=== PATIENT | female | born 1960 | race Caucasian/White ===

== ENCOUNTER 2022-05-21 18:49 | Inpatient (IN) | payer MEDICAID ==
[~2022-05-21] VITALS: Ht 162.6 cm; Wt 89.8 kg
[2022-05-21 19:08] VITALS: BP 154/93
--- NOTE | 2022-05-21 21:21 | NUR ---
PT TAKEN TO BED 11
--- NOTE | 2022-05-21 21:29 | NUR ---
62YR OLD FEMALE BIB FAMILY C/O ESTEFANY LOWER EXT WEAKNESS. PT FALL ON MONDAY AT WORK LEFT ANKLE SWELLING EDEMA +2 NON PITTING. BRUISING TO FOOT UP TO MID L THIGH. 6/10 PAIN. PT IS A&OX4 WELSH SPEAKING ONLY. DAUGHTER AT BEDSIDE. DENIES CP OR SOB. 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 NKDA DM HTN
--- NOTE | 2022-05-21 22:27 | NUR ---
Octaviano fonseca in [facility] - 05/21/22 at 2227 by LEN Patient being evaluated by physician Allen at bedside.
--- NOTE | 2022-05-21 22:27 | NUR ---
Patient being evaluated by physician Anthony at bedside.
[2022-05-21] MEDS ORDERED: cefTRIAXone 1,000 MG in DEXT 5% MINI-BAG PLUS 50 ML IV ONE (22:30)
[2022-05-21] MEDS ORDERED: NACL 0.9% 1,000 ML IV SCH (22:30)
[2022-05-21] MEDS ORDERED: KETOROLAC 30 MG/ML VIAL IVP ONE (22:30)
[2022-05-21] MEDS ORDERED: cefTRIAXone 1,000 MG VIAL ONE (22:44)
[2022-05-21 22:47] LABS: BASOPHILS % (AUTO) 0.4 % (0.0-2.0); EOSINOPHILS # (AUTO) 0.1 K/uL (0-0.4); EOSINOPHILS % (AUTO) 0.6 % (0.0-4.0); HEMATOCRIT 37.9 % (36-48); LYMPHOCYTES # (AUTO) 2.3 K/uL (2.5-16.5); LYMPHOCYTES % (AUTO) 18.8 % (20.5-51.1); MEAN CORPUSCULAR HEMOGLOBIN 28 pg (27-31); MEAN CORPUSCULAR HGB CONC 32 g/dL (33-37); MONOCYTES # (AUTO) 0.8 K/uL (0.8-1.0); MONOCYTES % (AUTO) 6.3 % (1.7-9.3); NEUTROPHILS # (AUTO) 9.1 K/uL (1.8-7.7); NEUTROPHILS % (AUTO) 73.9 % (42.2-75.2); PLATELET COUNT (AUTO) 217 K/uL (140-450); RED BLOOD CELL COUNT(AUTO) 4.35 MIL/uL (4.20-5.40); RED CELL DISTRIBUTION WIDTH 15.8 % (11.6-13.7); WHITE BLOOD COUNT (AUTO) 12.3 K/uL (4.8-10.8)
--- NOTE | 2022-05-21 22:47 | NUR ---
20G IV CATH PLACED L AC COVID SWAB AND URINE COLLECTED AND SENT TO LAB
[2022-05-21 22:49] LABS: APPEARANCE,URINE CLEAR (CLEAR); BILIRUBIN,URINE NEGATIVE (NEGATIVE); BLOOD, URINE NEGATIVE (NEGATIVE); COLOR,URINE YELLOW (YELLOW); LEUKOCYTE ESTERASE ,URINE TRACE (NEGATIVE); NITRITE, URINE NEGATIVE (NEGATIVE); PH,URINE 5.5 (5.0-9.0); UGLUCOSE NEGATIVE (NEGATIVE)
--- NOTE | 2022-05-21 22:54 | NUR ---
FLU SWAB COLLECTED AND SENT TO LAB
[2022-05-21] MEDS ORDERED: METF-1139 PO (22:57)
[2022-05-21] MEDS ORDERED: AMLO10TA PO (22:58)
[2022-05-21] MEDS ORDERED: ATOR20TA PO (22:58)
[2022-05-21] MEDS ORDERED: SITA100T8 PO (22:59)
[2022-05-21] MEDS ORDERED: LISI-487 PO (22:59)
[2022-05-21] MEDS ORDERED: METO25TA PO (23:00)
[2022-05-21] MEDS ORDERED: CHOL100013 PO (23:02)
[2022-05-21 23:05] LABS: RBC,URINE 0-5 /HPF (0-5); WBC,URINE 16-25 (MOD) /HPF (0-5)
[2022-05-21 23:10] LABS: ALBUMIN 2.9 g/dL (3.4-5.0); ANION GAP 9.2 (8-16); CREATININE 0.7 mg/dL (0.6-1.3); POTASSIUM 4.2 mmol/L (3.5-5.1); TOTAL BILIRUBIN 0.3 mg/dL (0.0-1.0)
--- NOTE | 2022-05-21 23:41 | NUR ---
got the report from brandon Waldrop, patient is alert and oriented, scottish speaker and daughter in law at the bedside. meds are being infused.
[2022-05-22 01:20] VITALS: BP 142/66
--- NOTE | 2022-05-22 01:32 | NUR ---
GET THE REPORT FROM ER NURSE, PATIENT IS LYING ON BED, PATIENT IS ALERT ORIENTED X4, PATIENT IS TRINIDADIAN SPEAKING, VITAL SIGN IS WITHIN THE NORMAL RANGE, ALL FALL PRECAUTION MEASURE ARE IN PLACE, CALL LIGHT IS WITHIN THE REACH, WILL CONTINUE TO MONITOR PATIENT.
--- NOTE | 2022-05-22 01:41 | NUR ---
Patient will be admitted to care of cipriano Waldrop. Admited to Med surge unit . Will go to room 104 B. Belongings list completed. Report to Cipriano. Pt is unsteady. All belongings sent with the patient.
[2022-05-22 04:00] VITALS: BP 147/68
--- NOTE | 2022-05-22 04:56 | NUR ---
CHANGE AND REPOSITION PATIENT WITH HELP OF GUARD RANGE, PATIENT IS LYING ON BED, NO ANY COMPLAIN OF PAIN OR SHORTNESS OF BREATH AT THIS TIME,ALL SCHEDULE MEDICATION IS GIVEN PER DOCTOR ORDER, VITAL SIGN IS WITHIN THE NORMAL RANGE, CALL LIGHT IS WITHIN THE REACH,WILL CONTINUE TO MONITOR PATIENT.
[2022-05-22 07:14] LABS: BASOPHILS % (AUTO) 0.4 % (0.0-2.0); EOSINOPHILS # (AUTO) 0.1 K/uL (0-0.4); EOSINOPHILS % (AUTO) 0.7 % (0.0-4.0); HEMATOCRIT 37.9 % (36-48); LYMPHOCYTES # (AUTO) 2.9 K/uL (2.5-16.5); LYMPHOCYTES % (AUTO) 25.7 % (20.5-51.1); MEAN CORPUSCULAR HEMOGLOBIN 28 pg (27-31); MEAN CORPUSCULAR HGB CONC 32 g/dL (33-37); MONOCYTES # (AUTO) 0.7 K/uL (0.8-1.0); MONOCYTES % (AUTO) 5.8 % (1.7-9.3); NEUTROPHILS # (AUTO) 7.6 K/uL (1.8-7.7); NEUTROPHILS % (AUTO) 67.4 % (42.2-75.2); PLATELET COUNT (AUTO) 214 K/uL (140-450); RED BLOOD CELL COUNT(AUTO) 4.36 MIL/uL (4.20-5.40); RED CELL DISTRIBUTION WIDTH 15.9 % (11.6-13.7); WHITE BLOOD COUNT (AUTO) 11.3 K/uL (4.8-10.8)
--- NOTE | 2022-05-22 07:14 | NUR ---
GAVE THE REPORT TO MORNING NURSE BONNY FOR CONTINUOS OF CARE , PATIENT IS STABLE.
[2022-05-22] MEDS ORDERED: ONDANSETRON 4 MG/2 ML VIAL IVP PRN (07:20)
[2022-05-22] MEDS ORDERED: ACETAMINOPHEN 325 MG TAB PO PRN (07:20)
[2022-05-22] MEDS ORDERED: DOCUSATE SODIUM 100 MG GELCAP PO PRN (07:20)
[2022-05-22] MEDS ORDERED: ZOLPIDEM 10 MG TAB PO PRN (07:20)
[2022-05-22] MEDS ORDERED: POTASSIUM CHLORIDE 10 MEQ TABER PO PRN (07:20)
[2022-05-22] MEDS ORDERED: MAG SULF 2000 MG/WATER PREMIX 50 ML IV PRN (07:20)
[2022-05-22] MEDS ORDERED: LORazepam 2 MG/ML VIAL IVP PRN (07:20)
[2022-05-22 07:24] LABS: ANION GAP 6.1 (8-16); CARBON DIOXIDE 29.9 mmol/L (21-32); CREATININE 0.6 mg/dL (0.6-1.3)
--- NOTE | 2022-05-22 07:26 | NUR ---
GOT REPORT FROM THE NIGHT NURSE, PT IS SLEEPING , NO SOB,[id number]
[2022-05-22 08:00] VITALS: BP 153/78
--- NOTE | 2022-05-22 09:00 | NUR ---
PT BILATERAL LEG SWOLLEN RED. THE LEFT LEG IS WORSE. ALSO THE PAIN IS SEVER IN THE LEFT UPPER AND LOWER LEG . CAROTID US IS DONE TODAY, PT UP IN W\C. [id number]
--- NOTE | 2022-05-22 09:17 | NUR ---
PATIENT HAS BEEN SCREENED AND CATEGORIZED LOW NUTRITION RISK. PATIENT WILL BE SEEN WITHIN 7 DAYS OF ADMISSION. 05/22/22-05/29/[address]
[2022-05-22] MEDS: METOPROLOL 25 MG TAB PO SCH ×2 (09:22→21:05)
[2022-05-22] MEDS: amLODIPine 5 MG TAB PO SCH (09:23)
[2022-05-22 12:00] VITALS: BP 153/78
[2022-05-22] MEDS ORDERED: INSULIN LISPRO SLIDING SCALE 100 UNITS/ML VIAL SUBQ PRN (12:45)
[2022-05-22 16:00] VITALS: BP 153/74
[2022-05-22] MEDS: MORPHINE SULFATE 2 MG/ML SYR IVP PRN (16:23)
[2022-05-22] MEDS: BLOOD GLUCOSE MONITORING 1 DEV DEV FS SCH ×2 (16:51→21:07)
--- NOTE | 2022-05-22 17:10 | NUR ---
RECEIVED REPORT FROM DAY NURSE. PATIENT WAS AMBULATING FROM THE RESTROOM, USING WALKER, WITH SLOW STEADY GAIT, FAMILY AT BEDSIDE. PATIENT IS ALERT AND ORIENTED. DENIES PAIN/ DISCOMFORT. CALL LIGHT WITHIN REACH.
--- NOTE | 2022-05-22 17:34 | NUR ---
PT HAS VISITOR ON THE BEDSIDE MEDICATED ORDERED FOR THE LEFT LEG PAIN.[id number]
--- NOTE | 2022-05-22 18:42 | NUR ---
ORTHOSTATIC BP IS SITTING 124\56 AND STANDING 134 62 [id number]
[2022-05-22 20:00] VITALS: BP 148/66
[2022-05-22] MEDS ORDERED: ATORVASTATIN 20 MG TAB PO SCH (21:00)
--- NOTE | 2022-05-22 21:10 | NUR ---
DUE MEDICATIONS GIVEN ORDERED, VITALS T 97.2, HR 61 BPM, BP 148/66, RESP 18, O2 97% ON ROOM AIR. SAFETY PRECAUTIONS MAINTAINED, CALL LIGHT WITHIN REACH, INFORMED PATIENT TO USE CALL LIGHT WHEN IN NEED OF ASSISTANCE, VERBALIZED UNDERSTANDING.
--- NOTE | 2022-05-23 00:10 | NUR ---
DUE MEDICATIONS GIVEN ORDERED. WILL CONTINUE TO MONITOR.
[2022-05-23] MEDS: MORPHINE SULFATE 2 MG/ML SYR IVP PRN (00:43)
--- NOTE | 2022-05-23 03:49 | NUR ---
PATIENT IS ASLEEP, LYING COMFORTABLY, NO SIGNS OF DISTRESS NOTED, NO SIGNS OF PAIN NOTED. CALL LIGHT IS WITHIN REACH. WILL CONTINUE TO MONITOR THE PATIENT.
[2022-05-23 04:00] VITALS: BP 140/72
--- NOTE | 2022-05-23 05:30 | NUR ---
PATIENT IS AWAKE, BREATHING EVEN AND NON LABORED ON ROOM AIR, DENIES PAIN. CALL LIGHT IS WITHIN REACH.
[2022-05-23] MEDS: BLOOD GLUCOSE MONITORING 1 DEV DEV FS SCH ×2 (06:34→11:51)
[2022-05-23 06:52] LABS: BASOPHILS % (AUTO) 0.3 % (0.0-2.0); EOSINOPHILS # (AUTO) 0.1 K/uL (0-0.4); EOSINOPHILS % (AUTO) 0.8 % (0.0-4.0); HEMATOCRIT 38.8 % (36-48); HEMOGLOBIN 12.4 g/dL (12.0-16.0); LYMPHOCYTES # (AUTO) 2.7 K/uL (2.5-16.5); LYMPHOCYTES % (AUTO) 27.7 % (20.5-51.1); MEAN CORPUSCULAR HEMOGLOBIN 28 pg (27-31); MEAN CORPUSCULAR HGB CONC 32 g/dL (33-37); MEAN CORPUSCULAR VOLUME 87.2 fL (80-94); MONOCYTES # (AUTO) 0.6 K/uL (0.8-1.0); NEUTROPHILS # (AUTO) 6.2 K/uL (1.8-7.7); NEUTROPHILS % (AUTO) 65.2 % (42.2-75.2); PLATELET COUNT (AUTO) 205 K/uL (140-450); RED BLOOD CELL COUNT(AUTO) 4.44 MIL/uL (4.20-5.40); RED CELL DISTRIBUTION WIDTH 15.8 % (11.6-13.7); WHITE BLOOD COUNT (AUTO) 9.6 K/uL (4.8-10.8)
--- NOTE | 2022-05-23 07:08 | NUR ---
ENDORSED PATIENT TO DAY NURSE FOR CONTINUITY OF CARE. PATIENT IS STABLE.
[2022-05-23 07:18] LABS: ANION GAP 5.9 (8-16); CARBON DIOXIDE 35.4 mmol/L (21-32); CREATININE 0.6 mg/dL (0.6-1.3); POTASSIUM 4.3 mmol/L (3.5-5.1)
--- NOTE | 2022-05-23 07:23 | NUR ---
GOT REPORT FROM THE NIGHT NURSE, PT SLEEPING NO SOB,[id number]
[2022-05-23 08:00] VITALS: BP 149/94
[2022-05-23] MEDS: METOPROLOL 25 MG TAB PO SCH (09:22)
[2022-05-23] MEDS: amLODIPine 5 MG TAB PO SCH (09:22)
[2022-05-23 12:00] VITALS: BP 149/94
[2022-05-23] MEDS ORDERED: DICL100G31 TP (12:48)
[2022-05-23 12:49] VITALS: BP 149/94
--- NOTE | 2022-05-23 15:15 | NUR ---
DC [age] YRS OLD FEMALE PATIENT WAS ADMITTED FROM HOME WITH A DX OF UTI. PATIENT HAS A HX OF DM, HTN AND HLD. CXT CAROTID US AND HEAD CT NEGATIVE. RAPDI COVID TEST NEGATIVE. ADMINISTERED IVF, IV ABX ROCEPHIN AND CONTINUED HOME MEDS. DC PLAN TO GO HOME WITH HOME [facility] FOR PHYSICAL THERAPY. FAXED THE ORDER TO [facility] [phone]. CM TO FOLLOW
--- NOTE | 2022-05-23 15:40 | NUR ---
PT DISCHARGED AND DISCHARGE INSTRUCTION IS GIVEN.IV AND ID BAND REMOVED. PT ESCORTED OUT TO THE CAR BY W\C WITHOUT ANY DISCOMFORT.[id number]
--- NOTE | 2022-05-24 07:52 | NUR ---
LATE ENTRY-0 IV CEFTRIAXONE DISCONTINUED AT 0141.
== END 2022-05-23 15:35 | disposition home health service (06) | DRG 204 ==
LOC: MED 18:49 → MMU 05-22 00:09 → MTU 05-22 00:57
PROVIDERS: ADMIT Family Medicine; ATTEND Family Medicine
DX: I95.1 Orthostatic hypotension (principal); E44.0 Moderate protein-calorie malnutrition; N39.0 Urinary tract infection, site not specified; E11.9 Type 2 diabetes mellitus without complications; Z20.822 Contact with and (suspected) exposure to COVID-19; I10 Essential (primary) hypertension; E78.5 Hyperlipidemia, unspecified; Z68.34 Body mass index [BMI] 34.0-34.9, adult
CPT/HCPCS: 36415; 70450; 71045; 73562; 80048; 80053; 81001; 82948; 83605; 83735; 83880; 84484; 85025; 87040; 87081; 87086; 93005; 93880; 96365; 96375; 97110; 97116; 97163-GP; 97530; 99285; J0696; J1885; J2270; J7060; Q0092

== ENCOUNTER 2024-02-17 18:49 | Inpatient (IN) | payer MEDICAID ==
[~2024-02-17] VITALS: Ht 157.5 cm; Wt 102.3 kg
[~2024-02-17 18:49] MED LIST: AMLO10TA PO; ATOR20TA PO; CHOL100013 PO; DICL100G31 TP; LISI-953 PO; METF-1139 PO; METO25TA PO; SITA100T8 PO
[2024-02-17 18:50] VITALS: BP 102/54; PULSE 101; RESP 18; TEMP 98; O2SAT 97
[2024-02-17 19:20] VITALS: O2SAT 99
[2024-02-17] MEDS: NACL 0.9% 1,000 ML IV SCH (19:50)
[2024-02-17 20:13] LABS: BASOPHILS # (AUTO) 0.1 K/uL (0.00-0.22); EOSINOPHILS # (AUTO) 0.9 K/uL (0-0.4); EOSINOPHILS % (AUTO) 9.6 % (0.0-4.0); HEMATOCRIT 32.1 % (36-48); HEMOGLOBIN 10.3 g/dL (12.0-16.0); LYMPHOCYTES % (AUTO) 34.2 % (20.5-51.1); MEAN CORPUSCULAR HEMOGLOBIN 28 pg (27-31); MEAN CORPUSCULAR HGB CONC 32 g/dL (33-37); MEAN CORPUSCULAR VOLUME 85.6 fL (80-94); MONOCYTES # (AUTO) 0.7 K/uL (0.8-1.0); MONOCYTES % (AUTO) 8.5 % (1.7-9.3); NEUTROPHILS # (AUTO) 4.1 K/uL (1.8-7.7); NEUTROPHILS % (AUTO) 46.7 % (42.2-75.2); PLATELET COUNT (AUTO) 466 K/uL (140-450); RED BLOOD CELL COUNT(AUTO) 3.75 MIL/uL (4.20-5.40); RED CELL DISTRIBUTION WIDTH 18.7 % (11.6-13.7); WHITE BLOOD COUNT (AUTO) 8.8 K/uL (4.8-10.8)
[2024-02-17 20:31] LABS: ANION GAP 12.6 (8-16); CARBON DIOXIDE 25.3 mmol/L (21-32); CREATININE 0.7 mg/dL (0.6-1.3); POTASSIUM 3.9 mmol/L (3.5-5.1)
[2024-02-17 20:46] LABS: INR 1.03 (0.8-1.2); PARTIAL THROMBOPLASTIN TIME 25.2 secs (22-35.6); PROTHROMBIN TIME 10.8 secs (10.8-13.4)
[2024-02-17 20:54] LABS: LACTIC ACID 1.4 mmol/L (0.4-2.0)
[2024-02-17 21:13] LABS: ALANINE AMINOTRANSFERASE 33 U/L (12-78); ALBUMIN 1.8 g/dL (3.4-5.0); ALKALINE PHOSPHATASE 111 U/L (50-136); ASPARTATE AMINOTRANSFERASE 29 U/L (15-37); BILIRUBIN,DIRECT 0.2 mg/dL (0.0-0.3); TOTAL BILIRUBIN 0.6 mg/dL (0.0-1.0); TOTAL PROTEIN, SERUM 6.1 g/dL (6.4-8.2)
[2024-02-17 21:44] LABS: APPEARANCE,URINE CLEAR (CLEAR); BILIRUBIN,URINE 1+ (NEGATIVE); BLOOD, URINE NEGATIVE (NEGATIVE); COLOR,URINE YELLOW (YELLOW); LEUKOCYTE ESTERASE ,URINE TRACE (NEGATIVE); NITRITE, URINE NEGATIVE (NEGATIVE); PROTEIN,URINE NEGATIVE (NEGATIVE); UGLUCOSE NEGATIVE (NEGATIVE); UROBILINOGEN,URINE 0.2 EU/dL (0.2 - 1)
[2024-02-17 22:04] LABS: ICTOTEST NEGATIVE (NEGATIVE)
[2024-02-17 22:05] LABS: BACTERIA,URINE 1+ /HPF (None Seen); RBC,URINE 0-5 /HPF (0-5); WBC,URINE 0-5 /HPF (0-5); YEAST,URINE Few /HPF (None Seen)
[2024-02-17] MEDS ORDERED: cefTRIAXone 2,000 MG VIAL ONE (23:07)
[2024-02-17] MEDS: cefTRIAXone 2,000 MG in DEXTROSE 5% 100 ML IV ONE (23:14)
[2024-02-17 23:53] VITALS: O2SAT 99
[2024-02-18] MEDS: DEXT 5% /NACL 0.9% 1,000 ML IV SCH (00:20)
[2024-02-18] MEDS ORDERED: MECO10005 PO (00:59)
[2024-02-18] MEDS ORDERED: METF-350 PO (00:59)
[2024-02-18] MEDS ORDERED: CALC-575 PO (00:59)
[2024-02-18] MEDS ORDERED: ATOR40TA PO (00:59)
[2024-02-18] MEDS ORDERED: LISI40TA8 PO (00:59)
[2024-02-18] MEDS ORDERED: [UNRECOGNIZED DRUG - CODE] PO (00:59)
[2024-02-18 01:20] VITALS: PULSE 104; RESP 18; O2SAT 100
[2024-02-18 04:00] VITALS: BP 121/65; PULSE 88; RESP 18; TEMP 98.5; O2SAT 100
[2024-02-18 08:00] VITALS: BP 115/67; PULSE 102; RESP 18; TEMP 97.9; O2SAT 97
[2024-02-18] MEDS: ENOXAPARIN 40 MG/0.4 ML SYR SUBQ SCH (09:29)
[2024-02-18] MEDS: CEFEPIME 2,000 MG in DEXTROSE 5% 100 ML IV SCH (10:18)
[2024-02-18] MEDS ORDERED: NACL 0.9% 500 ML IV SCH (11:05)
[2024-02-18] MEDS ORDERED: DEXTROSE 50% 50 ML SYR IVP PRN (11:10)
[2024-02-18 11:38] LABS: BASOPHILS # (AUTO) 0.1 K/uL (0.00-0.22); BASOPHILS % (AUTO) 0.9 % (0.0-2.0); EOSINOPHILS # (AUTO) 0.7 K/uL (0-0.4); EOSINOPHILS % (AUTO) 9.4 % (0.0-4.0); HEMATOCRIT 30.4 % (36-48); HEMOGLOBIN 9.8 g/dL (12.0-16.0); LYMPHOCYTES # (AUTO) 2.3 K/uL (2.5-16.5); LYMPHOCYTES % (AUTO) 29.2 % (20.5-51.1); MEAN CORPUSCULAR HEMOGLOBIN 28 pg (27-31); MEAN CORPUSCULAR HGB CONC 32 g/dL (33-37); MONOCYTES # (AUTO) 0.6 K/uL (0.8-1.0); MONOCYTES % (AUTO) 8.2 % (1.7-9.3); NEUTROPHILS # (AUTO) 4.1 K/uL (1.8-7.7); NEUTROPHILS % (AUTO) 52.3 % (42.2-75.2); PLATELET COUNT (AUTO) 483 K/uL (140-450); RED BLOOD CELL COUNT(AUTO) 3.58 MIL/uL (4.20-5.40); RED CELL DISTRIBUTION WIDTH 18.2 % (11.6-13.7); WHITE BLOOD COUNT (AUTO) 7.7 K/uL (4.8-10.8)
[2024-02-18 11:53] LABS: ANION GAP 13.4 (8-16); CALCIUM 10.5 mg/dL (8.5-10.1); CARBON DIOXIDE 23.3 mmol/L (21-32); CREATININE 0.7 mg/dL (0.6-1.3); POTASSIUM 3.7 mmol/L (3.5-5.1)
[2024-02-18] MEDS: BLOOD GLUCOSE MONITORING 1 DEV DEV FS SCH (12:21)
[2024-02-18] MEDS: INSULIN LISPRO SLIDING SCALE 100 UNITS/ML VIAL SUBQ PRN (12:23)
[2024-02-18 16:00] VITALS: BP 132/84; PULSE 111; RESP 18; TEMP 97.5; O2SAT 94
[2024-02-18] MEDS: NACL 0.9% 1,000 ML IV SCH (16:14)
[2024-02-18 20:00] VITALS: BP 137/65; PULSE 107; RESP 18; TEMP 98.8; O2SAT 100
[2024-02-18] MEDS: ATORVASTATIN 20 MG TAB PO SCH (21:52)
[2024-02-18] MEDS: METOPROLOL 25 MG TAB PO SCH (21:53)
[2024-02-18] MEDS: ACETAMINOPHEN 325 MG TAB PO PRN (21:55)
[2024-02-19] VITALS: BP 143/69; PULSE 89; RESP 18; TEMP 98.1; O2SAT 98
[2024-02-19 04:00] VITALS: BP 137/65; PULSE 89; RESP 18; TEMP 98.8; O2SAT 98
[2024-02-19 05:44] LABS: BASOPHILS # (AUTO) 0.1 K/uL (0.00-0.22); BASOPHILS % (AUTO) 0.7 % (0.0-2.0); EOSINOPHILS # (AUTO) 0.8 K/uL (0-0.4); EOSINOPHILS % (AUTO) 10.1 % (0.0-4.0); HEMOGLOBIN 9.6 g/dL (12.0-16.0); LYMPHOCYTES # (AUTO) 1.9 K/uL (2.5-16.5); MEAN CORPUSCULAR HEMOGLOBIN 28 pg (27-31); MEAN CORPUSCULAR HGB CONC 33 g/dL (33-37); MEAN CORPUSCULAR VOLUME 85.2 fL (80-94); MONOCYTES # (AUTO) 0.6 K/uL (0.8-1.0); NEUTROPHILS # (AUTO) 4.3 K/uL (1.8-7.7); NEUTROPHILS % (AUTO) 56.2 % (42.2-75.2); PLATELET COUNT (AUTO) 462 K/uL (140-450); RED CELL DISTRIBUTION WIDTH 18.9 % (11.6-13.7); WHITE BLOOD COUNT (AUTO) 7.7 K/uL (4.8-10.8)
[2024-02-19 05:56] LABS: ALBUMIN 1.8 g/dL (3.4-5.0); ANION GAP 11.1 (8-16); CALCIUM 10.5 mg/dL (8.5-10.1); CARBON DIOXIDE 25.4 mmol/L (21-32); CREATININE 0.7 mg/dL (0.6-1.3); MAGNESIUM 1.1 mg/dL (1.8-2.4); PHOSPHORUS 4.2 mg/dL (2.5-4.9); POTASSIUM 3.5 mmol/L (3.5-5.1); TOTAL BILIRUBIN 0.6 mg/dL (0.0-1.0); TOTAL PROTEIN, SERUM 5.8 g/dL (6.4-8.2)
[2024-02-19 08:00] VITALS: BP 102/53; PULSE 105; RESP 18; TEMP 98.5; O2SAT 100
[2024-02-19] MEDS: amLODIPine 5 MG TAB PO SCH (08:42)
[2024-02-19 16:00] VITALS: BP 107/64; PULSE 91; RESP 18; TEMP 98.4; O2SAT 91
[2024-02-19] MEDS ORDERED: MAG SULF 2000 MG/WATER PREMIX 50 ML IV ONE (16:25)
[2024-02-19] MEDS: MAG SULF 2000 MG/WATER PREMIX 100 ML IV ONE (17:52)
[2024-02-19 20:00] VITALS: BP 128/53; PULSE 100; PULSE 68; RESP 18; TEMP 99.2; O2SAT 100
[2024-02-19] MEDS: MAG SULF 2000 MG/WATER PREMIX 50 ML IV ONE (23:44)
[2024-02-20 03:59] VITALS: BP 100/53; PULSE 101; RESP 19; TEMP 98.1; O2SAT 97
[2024-02-20 05:39] LABS: BASOPHILS # (AUTO) 0.1 K/uL (0.00-0.22); BASOPHILS % (AUTO) 0.8 % (0.0-2.0); EOSINOPHILS # (AUTO) 0.8 K/uL (0-0.4); EOSINOPHILS % (AUTO) 10.5 % (0.0-4.0); HEMATOCRIT 27.9 % (36-48); HEMOGLOBIN 9.2 g/dL (12.0-16.0); LYMPHOCYTES # (AUTO) 1.7 K/uL (2.5-16.5); LYMPHOCYTES % (AUTO) 22.4 % (20.5-51.1); MEAN CORPUSCULAR HEMOGLOBIN 28 pg (27-31); MEAN CORPUSCULAR HGB CONC 33 g/dL (33-37); MEAN CORPUSCULAR VOLUME 85.8 fL (80-94); MONOCYTES # (AUTO) 0.7 K/uL (0.8-1.0); MONOCYTES % (AUTO) 9.2 % (1.7-9.3); NEUTROPHILS # (AUTO) 4.4 K/uL (1.8-7.7); NEUTROPHILS % (AUTO) 57.1 % (42.2-75.2); PLATELET COUNT (AUTO) 485 K/uL (140-450); RED BLOOD CELL COUNT(AUTO) 3.26 MIL/uL (4.20-5.40); RED CELL DISTRIBUTION WIDTH 18.5 % (11.6-13.7); WHITE BLOOD COUNT (AUTO) 7.7 K/uL (4.8-10.8)
[2024-02-20 06:20] LABS: ANION GAP 13.1 (8-16); CARBON DIOXIDE 24.3 mmol/L (21-32); CREATININE 0.6 mg/dL (0.6-1.3); POTASSIUM 3.4 mmol/L (3.5-5.1)
[2024-02-20 08:00] VITALS: BP 110/36; PULSE 106; RESP 18; TEMP 97.7; O2SAT 96
[2024-02-20 16:00] VITALS: BP 136/71; PULSE 101; RESP 18; TEMP 98.3; O2SAT 99
[2024-02-20 20:00] VITALS: BP 125/54; PULSE 99; RESP 18; TEMP 98; O2SAT 98
[2024-02-20] MEDS: HYDROcodone/APAP 5/325 MG 1 TAB TAB PO PRN (22:02)
[2024-02-20 23:54] VITALS: BP 131/59; PULSE 86; RESP 19; TEMP 98.1; O2SAT 97
[2024-02-21 04:00] VITALS: BP 137/70; PULSE 86; RESP 17; TEMP 97.2; O2SAT 99
[2024-02-21 08:00] VITALS: BP 129/68; PULSE 87; PULSE 99; RESP 18; TEMP 97.1; O2SAT 98
[2024-02-21 11:07] LABS: BASOPHILS % (AUTO) 0.7 % (0.0-2.0); EOSINOPHILS # (AUTO) 0.7 K/uL (0-0.4); EOSINOPHILS % (AUTO) 9.6 % (0.0-4.0); HEMATOCRIT 28.7 % (36-48); HEMOGLOBIN 9.4 g/dL (12.0-16.0); LYMPHOCYTES % (AUTO) 25.9 % (20.5-51.1); MEAN CORPUSCULAR HEMOGLOBIN 28 pg (27-31); MEAN CORPUSCULAR HGB CONC 33 g/dL (33-37); MEAN CORPUSCULAR VOLUME 85.1 fL (80-94); MONOCYTES # (AUTO) 0.7 K/uL (0.8-1.0); MONOCYTES % (AUTO) 8.9 % (1.7-9.3); NEUTROPHILS # (AUTO) 4.2 K/uL (1.8-7.7); NEUTROPHILS % (AUTO) 54.9 % (42.2-75.2); PLATELET COUNT (AUTO) 486 K/uL (140-450); RED BLOOD CELL COUNT(AUTO) 3.37 MIL/uL (4.20-5.40); RED CELL DISTRIBUTION WIDTH 18.2 % (11.6-13.7); WHITE BLOOD COUNT (AUTO) 7.6 K/uL (4.8-10.8)
[2024-02-21 11:21] LABS: ALBUMIN 1.7 g/dL (3.4-5.0); ANION GAP 10.6 (8-16); CALCIUM 9.5 mg/dL (8.5-10.1); CARBON DIOXIDE 24.9 mmol/L (21-32); CREATININE 0.6 mg/dL (0.6-1.3); POTASSIUM 3.5 mmol/L (3.5-5.1); TOTAL BILIRUBIN 0.5 mg/dL (0.0-1.0); TOTAL PROTEIN, SERUM 5.7 g/dL (6.4-8.2)
[2024-02-21 16:00] VITALS: BP_SYST 124; BP_SYST 196; BP_DIAS 59; BP_DIAS 84; PULSE 99; RESP 20; TEMP 98; O2SAT 98
[2024-02-21] MEDS ORDERED: CEFE2SOL IV (16:29)
[2024-02-21] MEDS ORDERED: NITR100C7 PO (16:54)
== END 2024-02-21 19:50 | DRG 52 ==
LOC: MED 18:49 → MMU 02-18 00:25 → MTU 02-18 00:50
PROVIDERS: ADMIT Student in an Organized Health Care Education/Training Program; ATTEND Student in an Organized Health Care Education/Training Program
DX: G93.41 Metabolic encephalopathy (principal); E43 Unspecified severe protein-calorie malnutrition; N39.0 Urinary tract infection, site not specified; I10 Essential (primary) hypertension; E11.9 Type 2 diabetes mellitus without complications; E66.9 Obesity, unspecified; Z79.899 Other long term (current) drug therapy; Z68.41 Body mass index [BMI] 40.0-44.9, adult
CPT/HCPCS: 36415; 70450; 71045; 80048; 80053; 80076; 81001; 82948; 83605; 83735; 83880; 84100; 84484; 85025; 85610; 85730; 87040; 87081; 87086; 93005; 96361; 96365; 97163-GP; 97530; 99285; J0692; J0696; J1650; J1815; J3475; J7060; Q0092